=== PATIENT | male | born 1950 | race Caucasian/White ===

== ENCOUNTER 2019-11-09 09:47 | Inpatient (IN) | payer OTHER ==
[~2019-11-09] VITALS: Ht 162.6 cm; Wt 77.2 kg
[2019-11-09 09:47] VITALS: BP 121/78
[2019-11-09 10:20] LABS: ABSOLUTE NEUTROPHILS 9.7 thou/uL (1.4-8.2); BASOPHILS 0.3 % (0.0-2.0); EOSINOPHILS 0.4 % (0.0-3.0); HEMATOCRIT 34.5 % (42.0-52.0); HEMOGLOBIN 11.5 gm/dL (14.0-18.0); LYMPHOCYTES 7.4 % (24.0-44.0); MCH 31.7 pg (26.0-34.0); MCHC 33.3 g/dL (28.0-37.0); MCV 95.3 fL (80.0-100.0); MONOCYTES 11.6 % (1.0-8.0); PLATELET COUNT 160 thou/uL (150-400); POLYS 80.3 % (36.0-66.0); RBC 3.62 mil/uL (4.50-6.00); RDW 12.7 % (10.5-14.5); WBC 12.1 thou/uL (4.0-11.0)
[2019-11-09 10:27] LABS: ANION GAP 6 mmol/L (7-16); BUN 33 mg/dL (7-18); CALCIUM 9.8 mg/dL (8.5-10.1); CHLORIDE 96 mmol/L (98-107); CO2 28 mmol/L (21-32); CREATININE 1.4 mg/dL (0.7-1.3); GLUCOSE 156 mg/dL (74-106); POTASSIUM 4.2 mmol/L (3.5-5.1); SODIUM 130 mmol/L (136-145)
[2019-11-09 10:33] LABS: APTT 29.4 Seconds (24.5-32.8); PROTIME 10.2 Seconds (9.3-11.4)
[2019-11-09 10:38] LABS: ALBUMIN 3.3 g/dL (3.4-5.0); DIRECT BILIRUBIN 0.2 mg/dL (<0.1-0.2); SGOT 46 U/L (15-37); SGPT 31 U/L (30-65); TOTAL BILIRUBIN 0.8 mg/dL (<0.1-1.0); TOTAL PROTEIN 6.8 g/dL (6.4-8.2); TROPONIN-I <0.06 ng/mL (<0.06)
[2019-11-09 11:41] VITALS: BP 90/47
[2019-11-09 13:03] VITALS: BP 123/57
[2019-11-09 13:25] VITALS: BP 113/61
--- NOTE | 2019-11-09 17:16 | NUR ---
PT CARE ASSUMED APPROX 1330. ADMITTED FOR AFIB RVR BUT PT CONVERTED PRIOR TO COMING TO UNIT. ASSESSMENT CHARTED. DENIES SOA. REPORTS ADEQUATE PAIN MANAGEMENT OF LOWER BACK. PT POD #2 OF SPINAL FUSION. INCISON DRESSED PER ER NURSE REPORTED ORDERS FROM SURGEON AT SENDING FACILITY. DSG REMAIN C/D/I AT THIS TIME. FAMILY AT BEDSIDE SINCE PT ARRIVAL. NEW MED, SIDE EFFECTS AND AFIB EDUCATION DONE WITH PT. PT AND FAMILY DENY QUESTIONS AND CONCERNS REGARDING POC. NO DISTRESS NOTED.
[2019-11-09 20:40] VITALS: BP 119/65
[2019-11-10 04:55] VITALS: BP 124/72
--- NOTE | 2019-11-10 06:51 | NUR ---
A/O X 4.PAIN WELL CONTROLLED WITH HYDROCODONE.MONITOR SHOWS CONTROLLED AFIB.POC CONTINUED.
[2019-11-10 08:00] VITALS: BP 116/64
--- NOTE | 2019-11-10 12:33 | H ---
[facility] [place] [address] HISTORY AND PHYSICAL Name: REYNA QUINONES Room #: 219-P ADM IN M.R.#: [id number] Admission: 11/09/19 Attend Phys: Esa Hemphill MD Discharge: Date of : 46 Report #: [id number] THIS REPORT FOR: //name// CC: Esa Hemphill [facility] unknown DATE OF SERVICE: 11/09/2019 CHIEF COMPLAINT: Tachycardia and chest palpitations. HISTORY OF PRESENT ILLNESS: The patient is a 68-year-old gentleman who was transferred from [facility] for evaluation of new onset atrial fibrillation. He underwent a limited lumbar spinal surgery on Sunday and was recovering as normal over the weekend. This morning, he was experiencing some fullness or tightness in his chest. He thought was indigestion from his history of Colon's esophagus. The nursing staff assessed him and noted his heart rate was elevated and irregular. An EKG was obtained, which was interpreted as atrial flutter with a heart rate in the 130s. I spoke to the nursing staff and directed him to the ER. EKG here confirms atrial fibrillation. This is new onset and his only past history was that of hypertension. PAST MEDICAL HISTORY: As mentioned, hypertension, chronic low back pain. PAST SURGICAL HISTORY: He has had a right hip replacement and left knee replacement and the recent lumbar spine surgery. FAMILY HISTORY: Noncontributory. SOCIAL HISTORY: No chronic alcohol or tobacco use. ALLERGIES: CODEINE. MEDICATIONS: Lisinopril, hydrochlorothiazide. REVIEW OF SYSTEMS: He denies headache, chest pain, shortness of breath, abdominal pain, nausea, vomiting, diarrhea, constipation, dysuria, syncope. OBJECTIVE: VITAL SIGNS: Temperature 36.6, initial heart rate 150, currently 90, respirations 13, blood pressure 121/78, O2 sat 93% on room air. GENERAL: He is awake and alert, in no distress. HEAD AND NECK: Unremarkable. LUNGS: Clear. HEART: Regular, no murmur. ABDOMEN: Protuberant, soft, hypoactive bowel sounds, nontender, no rebound or [facility] [address] [place] [address] HISTORY AND PHYSICAL Name: REYNA QUINONES Room #: 219-P [facility] IN [facility].#: [id number] Admission: 11/09/19 Attend Phys: Esa Hemphill MD Discharge: Date of : 46 Report #: [id number] guarding. EXTREMITIES: No cyanosis, clubbing or edema. Spinal incision is closed. NEUROLOGIC: He is alert and oriented. Moves all extremities equally. Global strength intact. LABORATORY DATA: Sodium was 130, creatinine 1.4. Troponin negative. TSH 1.179. ASSESSMENT: 1. New onset atrial fibrillation. 2. Mild hyponatremia. 3. Mild prerenal azotemia likely from his hydrochlorothiazide. 4. Recent lumbar spine surgery. PLAN: He will be admitted to telemetry and I asked the Cardiology Service to see him. His heart rate is converted back to sinus rhythm in the ER, may begin just either low dose beta awais or calcium channel awais and we will await their plans. As far as his spine surgery goes, he will have basic physical therapy here, but he is limited with log rolling in bed for transfers and no bending or flexion at the waist. He is due to follow up with his surgeon on 11/25/2019. <ELECTRONICALLY SIGNED> By: Esa Hemphill MD 11/10/19 1233 1128 1135 Esa Hemphill MD /nt
[2019-11-10] MEDS ORDERED: PRADAXA150 MG PO (13:15)
[2019-11-10] MEDS ORDERED: CARDIZEM CD120 MG PO (13:22)
[2019-11-10] MEDS ORDERED: NORCO 7.5-3251 EACH PO (13:41)
[2019-11-10] MEDS ORDERED: FLOMAX0.4 MG PO (13:41)
[2019-11-10] MEDS ORDERED: LIPITOR80 MG PO (13:41)
[2019-11-10 13:57] VITALS: BP 116/64
--- NOTE | 2019-11-10 14:59 | EKG ---
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: STEPHIE : 1950 Requested By: Ann Chavez Order Number: [id number] MD: Parag Terrell Measurements Intervals [place] Rate: 155 P: DE: QRS: 13 QRSD: 110 T: -44 QT: 266 QTc: 428 Interpretive Statements Atrial fibrillation with rapid V-rate Ventricular bigeminy Borderline T abnormalities, inferior leads No previous ECG available for comparison Electronically Signed On 11-10-2019 14:58:48 CLINICAL DOCUMENTATION SPEC by Parag Terrell [email or web address] <ELECTRONICALLY SIGNED> By: Parag Terrell MD 11/10/19 1458 1 1 Parag Terrell MD /DERRELL
--- NOTE | 2019-11-10 15:02 | EKG ---
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
--- NOTE | 2019-11-10 15:17 | NUR ---
ASSESSMENT CHARTED. PT ALERT AND ORIENTED. VSS. RECEIVED PRN PAIN MED WITH PARTIAL RELIEF. AMBULATED X2 IN THE HALLWAY THIS SHIFT. SEEN BY DR. ALBRECHT. ORDERS GIVEN TO DISCHARGE PT TO HOME. DISCHARGE INSRUCTIONS GIVEN TO PT. PT VERBERLISED UNDERSTANDING.
--- NOTE | 2019-11-13 12:04 | D ---
[facility] [address] [place] [address] DISCHARGE SUMMARY Name: REYNA QUINONES Room #: 219-P [facility] IN M.R.#: [id number] Admission: 11/09/19 Attend Phys: Esa Hemphill MD Discharge: 11/10/19 Date of : 46 Report #: [id number] THIS REPORT FOR: //name// CC: Esa JOSEPH unknown DATE OF SERVICE: 11/10/2019 FINAL DIAGNOSES: 1. Paroxysmal atrial fibrillation. 2. Hypertension. 3. Prerenal azotemia. 4. Mild hyponatremia. HOSPITAL COURSE: The patient was admitted from [facility] for treatment of new onset atrial fibrillation. He had tachycardia consistent with AFib. In the ER, he spontaneously converted to sinus rhythm. He was started on Cardizem CD 120 mg a day. Cardiology Service saw him and planned for a Holter monitor as an outpatient along with an outpatient echocardiogram and nuclear stress test. He has been cleared by his surgeon to start Pradaxa anticoagulation on the fifth postoperative day, which will be Sunday11/12/2019. He was asymptomatic from his electrolyte issues. He will stay off his hydrochlorothiazide, may be contributing to the prerenal status and his hyponatremia. PHYSICAL EXAMINATION: On the day of discharge: GENERAL: He was awake and alert with stable vital signs and heart rate sinus rhythm. He was up and walking the halls independently. He had a bowel movement. LUNGS: Clear. HEART: Regular. ABDOMEN: Soft, normoactive bowel sounds. EXTREMITIES: No edema. His lumbar incision was closed. DISPOSITION: He is discharged to home with diet as tolerated. He has a restriction of no heavy lifting, no heavy activity and no bending at the waist until he sees a surgeon in 2 weeks and he is to log roll when getting out of bed. He can walk normally and cover the incision as needed. His medicines will be Flomax, Protonix, hydrocodone 7.5 mg p.r.n., Lipitor [address] [address] DISCHARGE SUMMARY Name: REYNA QUINONES Room #: 219-P [facility] IN M.R.#: [id number] Admission: 11/09/19 Attend Phys: Esa Hemphill MD Discharge: 11/10/19 Date of : 46 Report #: [id number], Pradaxa 150 mg twice a day, Cardizem CD 120 mg a day. He is instructed to leave off his lisinopril and hydrochlorothiazide for now. <ELECTRONICALLY SIGNED> By: Esa Hemphill MD 11/13/19 1204 1347 1409 Esa Hemphill MD /nt
== END 2019-11-10 16:26 | disposition home or self-care (01) | DRG 309 ==
LOC: ER 09:47 → 2N 11:18 → EROBS 11:18 → 2N 13:01 → ENTRNSPT 11-10 16:05 → 2N 11-10 16:26
PROVIDERS: Emergency Medicine; ADMIT Internal Medicine Geriatric Medicine
DX: I48.0 Paroxysmal atrial fibrillation (principal); E87.1 Hypo-osmolality and hyponatremia; Z96.641 Presence of right artificial hip joint; Z96.652 Presence of left artificial knee joint; R79.89 Other specified abnormal findings of blood chemistry; I10 Essential (primary) hypertension; K22.70 Barrett's esophagus without dysplasia; M54.5 Low back pain; G89.29 Other chronic pain; E78.5 Hyperlipidemia, unspecified; N40.0 Benign prostatic hyperplasia without lower urinary tract symptoms; E78.00 Pure hypercholesterolemia, unspecified; Z98.1 Arthrodesis status; Z88.5 Allergy status to narcotic agent; Z79.899 Other long term (current) drug therapy; Z72.89 Other problems related to lifestyle
CPT/HCPCS: 10081

== ENCOUNTER → 2019-12-15 | Outpatient (CLI) | payer OTHER ==
[~2019-12-15] MED LIST: CARDIZEM CD120 MG PO; FLOMAX0.4 MG PO; LIPITOR80 MG PO; NORCO 7.5-3251 EACH PO; PRADAXA150 MG PO
== END ==
LOC: SJCVCIMAG 14:33
DX: I48.0 Paroxysmal atrial fibrillation (principal); M15.3 Secondary multiple arthritis; I10 Essential (primary) hypertension; Z88.5 Allergy status to narcotic agent; Z79.899 Other long term (current) drug therapy; Z87.891 Personal history of nicotine dependence

== ENCOUNTER → 2019-12-29 | Outpatient (CLI) | payer OTHER | LOC: SJCVC 13:27 | DX: I48.0 Paroxysmal atrial fibrillation (principal); I10 Essential (primary) hypertension; K21.9 Gastro-esophageal reflux disease without esophagitis; E78.5 Hyperlipidemia, unspecified; Z79.899 Other long term (current) drug therapy; Z87.891 Personal history of nicotine dependence ==